=== PATIENT | female | born 1955 | race Caucasian/White ===

== ENCOUNTER → 2022-03-14 | Outpatient (CLI) | payer MEDICARE | END | disposition home or self-care (01) | LOC: PLD 11:55 → LAB SHORT 11:55 | DX: D22.39 Melanocytic nevi of other parts of face (principal); L72.0 Epidermal cyst | CPT/HCPCS: 88305 ==

== ENCOUNTER 2023-10-27 20:36 | Emergency (ER) | payer MEDICARE, BC ==
[~2023-10-27] VITALS: Ht 152.4 cm; Wt 64.0 kg
[2023-10-27 20:40] VITALS: BP 159/56
[2023-10-27] MEDS ORDERED: Ketorolac Tromethamine 30mg Vial IM ONE (22:00)
[2023-10-27] MEDS ORDERED: Cyclobenzaprine HCl 10 MG Tab PO ONE (22:00)
[2023-10-27] MEDS ORDERED: Cyclobenzaprine5 MG PO (22:02)
[2023-10-29] MEDS ORDERED: AZIT250 PO (08:13)
== END 2023-10-27 22:19 | disposition home or self-care (01) ==
LOC: ER 20:36
DX: M43.6 Torticollis (principal); Z88.2 Allergy status to sulfonamides; Z88.5 Allergy status to narcotic agent
CPT/HCPCS: 96372; 99282-25; A9270; J1885

== ENCOUNTER 2023-11-30 00:07 | Day surgery (SDC) | payer MEDICARE, BC ==
[~2023-11-30 00:07] MED LIST: AZIT250 PO; Cyclobenzaprine5 MG PO
[2023-11-30] MEDS ORDERED: Abatacept/Maltose 750 MG in NS 100 ML IV SCH (06:00)
[2023-11-30 15:47] VITALS: BP 148/66
[2023-11-30] MEDS ORDERED: ABAT250V IV (18:03)
[2023-11-30 18:07] LABS: BASOPHILS ABSOLUTE AUTO 0.03 K/mm3 (0.00-0.23); BASOPHILS PERCENT AUTO 0 % (0-2); EOSINOPHILS ABSOLUTE AUTO 0.41 K/mm3 (0.00-0.68); EOSINOPHILS PERCENT AUTO 5 % (0-6); Hematocrit 32.2 % (33.0-51.0); Hemoglobin 10.1 g/dL (11.5-16.0); IMMATURE GRAN ABSOLUTE AUTO 0.03 K/mm3 (0.00-0.10); IMMATURE GRAN PERCENT AUTO 0 % (0-1); LYMPHOCYTES ABSOLUTE AUTO 1.96 K/mm3 (0.84-5.20); LYMPHOCYTES PERCENT AUTO 21 % (21-46); MONOCYTES ABSOLUTE AUTO 0.53 K/mm3 (0.16-1.47); MONOCYTES PERCENT AUTO 6 % (4-13); Mean Corpuscular HGB 23.9 pg (26.0-34.0); Mean Corpuscular HGB Conc 31.4 g/dL (31.5-36.5); Mean Corpuscular Volume 76 fL (80-100); Mean Platelet Volume 9.2 fL (9.1-12.4); NEUTROPHILS ABSOLUTE AUTO 6.22 K/mm3 (1.96-9.15); NEUTROPHILS PERCENT AUTO 68 % (41-73); Platelet Count 435 K/mm3 (150-400); RDW Coefficient Variation 15.1 % (11.7-14.2); RDW Standard Deviation 41.6 fL (35.1-46.3); Red Blood Cell Count 4.22 M/mm3 (3.80-5.20); White Blood Cell Count 9.18 K/mm3 (4.00-11.30)
[2023-11-30 18:32] LABS: C-REACTIVE PROTEIN, EXT RANGE 1.04 mg/dL (0.000-0.300)
[2023-11-30 18:35] LABS: Albumin, Blood 3.1 g/dL (3.4-5.0); Albumin/Globulin Ratio 0.8 (0.8-1.8); Bilirubin, Total 0.4 mg/dL (0.1-1.0); Bun/Creatinine Ratio 27.7 (12.0-20.0); Calcium, Blood 9.4 mg/dL (8.5-10.1); Creatinine, Blood 0.9 mg/dL (0.40-1.00); Potassium, Blood 4.3 mmol/L (3.5-5.5); Total Protein, Blood 7.1 g/dL (6.4-8.2)
== END 2023-11-30 16:58 | disposition home or self-care (01) ==
LOC: ATC 00:07
PROVIDERS: Internal Medicine Rheumatology
DX: M05.79 Rheumatoid arthritis with rheumatoid factor of multiple sites without organ or systems involvement (principal); I10 Essential (primary) hypertension; E11.9 Type 2 diabetes mellitus without complications; Z79.899 Other long term (current) drug therapy; Z88.5 Allergy status to narcotic agent; Z88.2 Allergy status to sulfonamides
CPT/HCPCS: 80053; 85025; 86140; 96365; J0129-JA

== ENCOUNTER 2023-12-14 03:28 | Day surgery (SDC) | payer MEDICARE, BC ==
[~2023-12-14 03:28] MED LIST changes: +ABAT250V IV
[2023-12-14] MEDS ORDERED: Abatacept/Maltose 750 MG in NS 100 ML IV SCH (06:00)
[2023-12-14 14:06] VITALS: BP 135/61
== END 2023-12-14 15:15 | disposition home or self-care (01) ==
LOC: ATC 03:28
DX: M05.79 Rheumatoid arthritis with rheumatoid factor of multiple sites without organ or systems involvement (principal); I10 Essential (primary) hypertension; E11.9 Type 2 diabetes mellitus without complications; M17.0 Bilateral primary osteoarthritis of knee; K75.81 Nonalcoholic steatohepatitis (NASH); Z88.5 Allergy status to narcotic agent
CPT/HCPCS: 96365; J0129-JA

== ENCOUNTER 2023-12-28 00:21 | Day surgery (SDC) | payer MEDICARE, BC ==
[2023-12-28] MEDS ORDERED: Abatacept/Maltose 750 MG in NS 100 ML IV SCH (01:00)
[2023-12-28 14:58] VITALS: BP 144/60
[2023-12-28] MEDS ORDERED: ATOR40TA PO (15:00)
[2023-12-28] MEDS ORDERED: GLIP10 PO (15:01)
[2023-12-28] MEDS ORDERED: METHI10 PO (15:01)
[2023-12-28] MEDS ORDERED: AMLO10 PO (15:01)
[2023-12-28] MEDS ORDERED: PIOG15 PO (15:02)
[2023-12-28] MEDS ORDERED: METF500 PO (15:02)
[2023-12-28] MEDS ORDERED: LOSA50 PO (15:02)
[2023-12-28] MEDS ORDERED: METO25ER PO (15:03)
== END 2023-12-28 16:17 | disposition home or self-care (01) ==
LOC: ATC 00:21
DX: M05.79 Rheumatoid arthritis with rheumatoid factor of multiple sites without organ or systems involvement (principal); E11.9 Type 2 diabetes mellitus without complications; I10 Essential (primary) hypertension; Z88.5 Allergy status to narcotic agent; Z88.2 Allergy status to sulfonamides
CPT/HCPCS: 96365; J0129-JA

== ENCOUNTER 2024-01-25 06:12 | Day surgery (SDC) | payer MEDICARE, BC ==
[~2024-01-25 06:12] MED LIST changes: +AMLO10 PO; +ATOR40TA PO; +Abatacept/Maltose 750 MG in NS 100 ML IV SCH; +GLIP10 PO; +LOSA50 PO; +METF500 PO; +METHI10 PO; +METO25ER PO; +PIOG15 PO
[2024-01-25 09:56] VITALS: BP 139/65
== END 2024-01-25 11:15 | disposition home or self-care (01) ==
LOC: ATC 06:12
DX: M05.79 Rheumatoid arthritis with rheumatoid factor of multiple sites without organ or systems involvement (principal); E11.9 Type 2 diabetes mellitus without complications; I10 Essential (primary) hypertension; Z88.5 Allergy status to narcotic agent; Z88.2 Allergy status to sulfonamides
CPT/HCPCS: 96365; J0129-JA

== ENCOUNTER 2024-02-22 03:23 | Day surgery (SDC) | payer MEDICARE, BC ==
[~2024-02-22 03:23] MED LIST changes: -Abatacept/Maltose 750 MG in NS 100 ML IV SCH
[2024-02-22] MEDS ORDERED: ABATACEPT IV SCH (06:00)
[2024-02-22] MEDS ORDERED: NS IV SCH (06:00)
[2024-02-22] MEDS ORDERED: MALTOSE IV SCH (06:00)
[2024-02-22 09:54] VITALS: BP 132/60
[2024-02-22 10:01] LABS: BASOPHILS ABSOLUTE AUTO 0.04 K/mm3 (0.00-0.23); BASOPHILS PERCENT AUTO 1 % (0-2); EOSINOPHILS ABSOLUTE AUTO 0.36 K/mm3 (0.00-0.68); EOSINOPHILS PERCENT AUTO 5 % (0-6); Hematocrit 40.1 % (33.0-51.0); IMMATURE GRAN ABSOLUTE AUTO 0.01 K/mm3 (0.00-0.10); IMMATURE GRAN PERCENT AUTO 0 % (0-1); LYMPHOCYTES ABSOLUTE AUTO 1.88 K/mm3 (0.84-5.20); LYMPHOCYTES PERCENT AUTO 27 % (21-46); MONOCYTES ABSOLUTE AUTO 0.48 K/mm3 (0.16-1.47); MONOCYTES PERCENT AUTO 7 % (4-13); Mean Corpuscular HGB 27.3 pg (26.0-34.0); Mean Corpuscular HGB Conc 32.4 g/dL (31.5-36.5); Mean Corpuscular Volume 84 fL (80-100); Mean Platelet Volume 9.5 fL (9.1-12.4); NEUTROPHILS ABSOLUTE AUTO 4.31 K/mm3 (1.96-9.15); NEUTROPHILS PERCENT AUTO 61 % (41-73); Platelet Count 271 K/mm3 (150-400); RDW Coefficient Variation 17.5 % (11.7-14.2); RDW Standard Deviation 54.4 fL (35.1-46.3); Red Blood Cell Count 4.76 M/mm3 (3.80-5.20); White Blood Cell Count 7.08 K/mm3 (4.00-11.30)
[2024-02-22 10:23] LABS: C-REACTIVE PROTEIN, EXT RANGE <0.290 mg/dL (0.000-0.300)
[2024-02-22 10:24] LABS: Alanine Aminotransfer (ALT/SGP 23 U/L (12-78); Albumin, Blood 3.8 g/dL (3.4-5.0); Albumin/Globulin Ratio 1.2 (0.8-1.8); Alk Phos 115 U/L (50-136); Anion Gap 8 mmol/L (3-11); Aspartate Aminotrans (AST/SGOT 18 U/L (12-37); Bilirubin, Total 0.5 mg/dL (0.1-1.0); Blood Urea Nitrogen 22 mg/dL (8-24); Bun/Creatinine Ratio 31.7 (12.0-20.0); CO2, Blood 26 mmol/L (21-32); Calcium, Blood 8.9 mg/dL (8.5-10.1); Chloride, Blood 111 mmol/L (98-108); Creatinine, Blood 0.69 mg/dL (0.40-1.00); Globulin, Blood 3.2 g/dL (2.2-4.0); Glomerular Filtration Rate 95 (60-); Glucose, Blood 68 mg/dL (70-99); Potassium, Blood 3.9 mmol/L (3.5-5.5); Sodium, Blood 141 mmol/L (136-145)
== END 2024-02-22 11:06 | disposition home or self-care (01) ==
LOC: ATC 03:23
PROVIDERS: Internal Medicine Rheumatology
DX: M05.79 Rheumatoid arthritis with rheumatoid factor of multiple sites without organ or systems involvement (principal); I10 Essential (primary) hypertension; E11.9 Type 2 diabetes mellitus without complications; Z88.5 Allergy status to narcotic agent; Z88.2 Allergy status to sulfonamides
CPT/HCPCS: 80053; 85025; 86140; 96365; J0129-JA

== ENCOUNTER → 2024-03-17 | Outpatient (CLI) | payer MEDICARE, BC ==
[2024-03-17 13:47] LABS: Microalb/Creat Ratio UR, Rand 20.05 mg/g (0.000-30.000); Microalbumin, Random Urine 80.2 mg/L (0.000-20.000)
== END ==
LOC: LAB 11:27 → LAB SHORT 11:27
PROVIDERS: Physician Assistant
DX: E11.21 Type 2 diabetes mellitus with diabetic nephropathy (principal); E11.59 Type 2 diabetes mellitus with other circulatory complications; E11.69 Type 2 diabetes mellitus with other specified complication
CPT/HCPCS: 82043; 82570

== ENCOUNTER 2024-04-18 04:41 | Day surgery (SDC) | payer MEDICARE, BC ==
[2024-04-18] MEDS ORDERED: Abatacept/Maltose 750 MG in NS 100 ML IV SCH (06:00)
[2024-04-18 09:45] VITALS: BP 119/53
[2024-04-18 11:09] LABS: BASOPHILS ABSOLUTE AUTO 0.05 K/mm3 (0.00-0.23); BASOPHILS PERCENT AUTO 1 % (0-2); EOSINOPHILS ABSOLUTE AUTO 0.66 K/mm3 (0.00-0.68); EOSINOPHILS PERCENT AUTO 10 % (0-6); Hematocrit 36.6 % (33.0-51.0); Hemoglobin 12.2 g/dL (11.5-16.0); IMMATURE GRAN ABSOLUTE AUTO 0.02 K/mm3 (0.00-0.10); IMMATURE GRAN PERCENT AUTO 0 % (0-1); LYMPHOCYTES ABSOLUTE AUTO 1.84 K/mm3 (0.84-5.20); LYMPHOCYTES PERCENT AUTO 27 % (21-46); MONOCYTES ABSOLUTE AUTO 0.54 K/mm3 (0.16-1.47); MONOCYTES PERCENT AUTO 8 % (4-13); Mean Corpuscular HGB 28.4 pg (26.0-34.0); Mean Corpuscular HGB Conc 33.3 g/dL (31.5-36.5); Mean Corpuscular Volume 85 fL (80-100); NEUTROPHILS ABSOLUTE AUTO 3.68 K/mm3 (1.96-9.15); NEUTROPHILS PERCENT AUTO 54 % (41-73); Platelet Count 239 K/mm3 (150-400); RDW Coefficient Variation 13.7 % (11.7-14.2); RDW Standard Deviation 42.6 fL (35.1-46.3); Red Blood Cell Count 4.29 M/mm3 (3.80-5.20); White Blood Cell Count 6.79 K/mm3 (4.00-11.30)
[2024-04-22 09:31] LABS: C-REACTIVE PROTEIN, EXT RANGE <0.290 mg/dL (0.000-0.300)
[2024-04-22 09:33] LABS: Alanine Aminotransfer (ALT/SGP 16 U/L (12-78); Albumin, Blood 3.3 g/dL (3.4-5.0); Albumin/Globulin Ratio 1.2 (0.8-1.8); Alk Phos 91 U/L (50-136); Anion Gap 12 mmol/L (3-11); Aspartate Aminotrans (AST/SGOT 16 U/L (12-37); Bilirubin, Total 0.4 mg/dL (0.1-1.0); Blood Urea Nitrogen 29 mg/dL (8-24); Bun/Creatinine Ratio 36.8 (12.0-20.0); CO2, Blood 23 mmol/L (21-32); Calcium, Blood 8.7 mg/dL (8.5-10.1); Chloride, Blood 107 mmol/L (98-108); Creatinine, Blood 0.79 mg/dL (0.40-1.00); Globulin, Blood 2.7 g/dL (2.2-4.0); Glomerular Filtration Rate 82 (60-); Glucose, Blood 139 mg/dL (70-99); Potassium, Blood 4.2 mmol/L (3.5-5.5); Sodium, Blood 138 mmol/L (136-145)
== END 2024-04-18 10:45 | disposition home or self-care (01) ==
LOC: ATC 04:41
PROVIDERS: Internal Medicine Rheumatology
DX: M05.79 Rheumatoid arthritis with rheumatoid factor of multiple sites without organ or systems involvement (principal); I10 Essential (primary) hypertension; M17.0 Bilateral primary osteoarthritis of knee; E11.9 Type 2 diabetes mellitus without complications; Z88.2 Allergy status to sulfonamides; Z88.5 Allergy status to narcotic agent; K75.81 Nonalcoholic steatohepatitis (NASH)
CPT/HCPCS: 80053; 85025; 86140; 96365; J0129-JA

== ENCOUNTER 2024-05-16 03:58 | Day surgery (SDC) | payer MEDICARE, BC ==
[2024-05-16] MEDS ORDERED: Abatacept/Maltose 750 MG in NS 100 ML IV SCH (06:00)
[2024-05-16 10:01] VITALS: BP 153/76
== END 2024-05-16 11:10 | disposition home or self-care (01) ==
LOC: ATC 03:58
DX: M05.79 Rheumatoid arthritis with rheumatoid factor of multiple sites without organ or systems involvement (principal); Z88.5 Allergy status to narcotic agent; Z88.2 Allergy status to sulfonamides
CPT/HCPCS: 96365; J0129-JA

== ENCOUNTER 2024-06-13 02:37 | Day surgery (SDC) | payer MEDICARE, BC ==
[2024-06-13] MEDS ORDERED: Abatacept/Maltose 750 MG in NS 100 ML IV SCH (06:00)
[2024-06-13 10:15] VITALS: BP 151/80
== END 2024-06-13 11:23 | disposition home or self-care (01) ==
LOC: ATC 02:37
DX: M05.79 Rheumatoid arthritis with rheumatoid factor of multiple sites without organ or systems involvement (principal); E11.9 Type 2 diabetes mellitus without complications; Z79.899 Other long term (current) drug therapy; Z88.5 Allergy status to narcotic agent; Z88.2 Allergy status to sulfonamides
CPT/HCPCS: 96365; J0129-JA

== ENCOUNTER 2024-07-11 01:08 | Day surgery (SDC) | payer MEDICARE, BC ==
[2024-07-11] MEDS ORDERED: Abatacept/Maltose 750 MG in NS 100 ML IV SCH (06:00)
[2024-07-11 09:51] VITALS: BP 145/65
[2024-07-11 10:53] LABS: BASOPHILS ABSOLUTE AUTO 0.04 K/mm3 (0.00-0.23); BASOPHILS PERCENT AUTO 1 % (0-2); EOSINOPHILS ABSOLUTE AUTO 0.46 K/mm3 (0.00-0.68); EOSINOPHILS PERCENT AUTO 7 % (0-6); Hematocrit 40.9 % (33.0-51.0); Hemoglobin 13.2 g/dL (11.5-16.0); IMMATURE GRAN ABSOLUTE AUTO 0.02 K/mm3 (0.00-0.10); IMMATURE GRAN PERCENT AUTO 0 % (0-1); LYMPHOCYTES ABSOLUTE AUTO 1.98 K/mm3 (0.84-5.20); LYMPHOCYTES PERCENT AUTO 28 % (21-46); MONOCYTES PERCENT AUTO 9 % (4-13); Mean Corpuscular HGB 27.8 pg (26.0-34.0); Mean Corpuscular HGB Conc 32.3 g/dL (31.5-36.5); Mean Corpuscular Volume 86 fL (80-100); NEUTROPHILS ABSOLUTE AUTO 3.98 K/mm3 (1.96-9.15); NEUTROPHILS PERCENT AUTO 56 % (41-73); Platelet Count 240 K/mm3 (150-400); RDW Coefficient Variation 13.6 % (11.7-14.2); RDW Standard Deviation 42.7 fL (35.1-46.3); Red Blood Cell Count 4.74 M/mm3 (3.80-5.20); White Blood Cell Count 7.08 K/mm3 (4.00-11.30)
[2024-07-11 12:51] LABS: Alanine Aminotransfer (ALT/SGP 25 U/L (12-78); Albumin, Blood 3.9 g/dL (3.4-5.0); Albumin/Globulin Ratio 1.3 (0.8-1.8); Alk Phos 94 U/L (50-136); Anion Gap 8 mmol/L (3-11); Aspartate Aminotrans (AST/SGOT 19 U/L (12-37); Bilirubin, Total 0.6 mg/dL (0.1-1.0); Blood Urea Nitrogen 25 mg/dL (8-24); Bun/Creatinine Ratio 31.6 (12.0-20.0); C-REACTIVE PROTEIN, EXT RANGE <0.290 mg/dL (0.000-0.300); CO2, Blood 29 mmol/L (21-32); Calcium, Blood 9.6 mg/dL (8.5-10.1); Chloride, Blood 102 mmol/L (98-108); Creatinine, Blood 0.79 mg/dL (0.40-1.00); Globulin, Blood 2.9 g/dL (2.2-4.0); Glomerular Filtration Rate 82 (60-); Glucose, Blood 139 mg/dL (70-99); Sodium, Blood 135 mmol/L (136-145); Total Protein, Blood 6.8 g/dL (6.4-8.2)
== END 2024-07-11 11:22 | disposition home or self-care (01) ==
LOC: ATC 01:08
PROVIDERS: Internal Medicine Rheumatology
DX: M05.79 Rheumatoid arthritis with rheumatoid factor of multiple sites without organ or systems involvement (principal)
CPT/HCPCS: 80053; 85025; 86140; 96365; J0129-JA

== ENCOUNTER 2024-08-11 05:15 | Day surgery (SDC) | payer MEDICARE, BC ==
[2024-08-11] MEDS ORDERED: Abatacept/Maltose 750 MG in NS 100 ML IV SCH (06:00)
[2024-08-11 09:42] VITALS: BP 138/67
== END 2024-08-11 11:00 | disposition home or self-care (01) ==
LOC: ATC 05:15
DX: M05.79 Rheumatoid arthritis with rheumatoid factor of multiple sites without organ or systems involvement (principal); I10 Essential (primary) hypertension; E11.9 Type 2 diabetes mellitus without complications
CPT/HCPCS: 96365; J0129-JA

== ENCOUNTER 2024-09-08 00:30 | Day surgery (SDC) | payer MEDICARE, BC ==
[2024-09-08 09:34] VITALS: BP 158/84
[2024-09-08] MEDS ORDERED: Abatacept/Maltose 750 MG in NS 100 ML IV SCH (09:45)
== END 2024-09-08 11:07 | disposition home or self-care (01) ==
LOC: ATC 00:30
DX: M05.79 Rheumatoid arthritis with rheumatoid factor of multiple sites without organ or systems involvement (principal); M47.819 Spondylosis without myelopathy or radiculopathy, site unspecified; M17.11 Unilateral primary osteoarthritis, right knee; Z79.84 Long term (current) use of oral hypoglycemic drugs; Z79.899 Other long term (current) drug therapy; Z96.652 Presence of left artificial knee joint
CPT/HCPCS: 96365; J0129-JA

== ENCOUNTER 2024-10-09 00:44 | Day surgery (SDC) | payer MEDICARE, BC ==
[2024-10-09] MEDS ORDERED: Abatacept/Maltose 750 MG in NS 100 ML IV SCH (06:00)
[2024-10-09 09:40] VITALS: BP 155/67
== END 2024-10-09 10:48 | disposition home or self-care (01) ==
LOC: ATC 00:44
DX: M05.79 Rheumatoid arthritis with rheumatoid factor of multiple sites without organ or systems involvement (principal); M47.819 Spondylosis without myelopathy or radiculopathy, site unspecified; G89.29 Other chronic pain; M54.9 Dorsalgia, unspecified; K75.81 Nonalcoholic steatohepatitis (NASH); I10 Essential (primary) hypertension; E11.9 Type 2 diabetes mellitus without complications; Z79.84 Long term (current) use of oral hypoglycemic drugs; Z79.899 Other long term (current) drug therapy; Z96.652 Presence of left artificial knee joint
CPT/HCPCS: 96365; J0129-JA

== ENCOUNTER 2024-11-06 00:41 | Day surgery (SDC) | payer MEDICARE, BC ==
[2024-11-06] MEDS ORDERED: Abatacept/Maltose 750 MG in NS 100 ML IV SCH (06:00)
[2024-11-06 09:38] VITALS: BP 127/67
[2024-11-06 10:11] LABS: BASOPHILS ABSOLUTE AUTO 0.05 K/mm3 (0.00-0.23); BASOPHILS PERCENT AUTO 1 % (0-2); EOSINOPHILS ABSOLUTE AUTO 0.90 K/mm3 (0.00-0.68); EOSINOPHILS PERCENT AUTO 11 % (0-6); Hematocrit 39.8 % (33.0-51.0); Hemoglobin 13.3 g/dL (11.5-16.0); IMMATURE GRAN ABSOLUTE AUTO 0.01 K/mm3 (0.00-0.10); IMMATURE GRAN PERCENT AUTO 0 % (0-1); LYMPHOCYTES ABSOLUTE AUTO 1.86 K/mm3 (0.84-5.20); LYMPHOCYTES PERCENT AUTO 23 % (21-46); MONOCYTES ABSOLUTE AUTO 0.57 K/mm3 (0.16-1.47); MONOCYTES PERCENT AUTO 7 % (4-13); Mean Corpuscular HGB Conc 33.4 g/dL (31.5-36.5); Mean Corpuscular Volume 86 fL (80-100); NEUTROPHILS ABSOLUTE AUTO 4.60 K/mm3 (1.96-9.15); NEUTROPHILS PERCENT AUTO 58 % (41-73); NRBC ABSOLUTE 0.00 K/mm3 (0.00-0.02); NRBC Auto 0.0 /100 WBC (0.0-0.2); Platelet Count 218 K/mm3 (150-400); RDW Coefficient Variation 12.9 % (11.7-14.2); RDW Standard Deviation 40.3 fL (35.1-46.3)
--- NOTE | 2024-11-06 10:26 | NUR ---
PT VOICES CONCERN TODAY THAT SHE IS SCHEDULED FOR TWO [employer]ENCIA INFUSIONS IN NOVEMBER. ONCE TODAY ON 11/06 AND THE NEXT IS SCHEDULED FOR 4 WEEKS FROM TODAY ON 12/04. SHE IS CONCERNED INSURANCE WOULDN'T COVER BOTH. SPOKE WITH LYNDA WHO HANDLES INSURANCE AND AUTHORIZATIONS FOR OUR DEPT AND SHE STATED THAT LONG SHE WAS FOLLOWING HER ORDER THAT STATES ORENCIA EVERY 4 WEEKS, SHE WILL BE APPROVED AND THERE WILL BE NO ISSUE. PT INFORMED OF WHAT LYNDA SAID AND IS PLANNING TO KEEP HER 12/04/24 APPT.
--- NOTE | 2024-11-06 10:47 | NUR ---
LABS FAXED TO DR GARCIA
== END 2024-11-06 10:37 | disposition home or self-care (01) ==
LOC: ATC 00:41
PROVIDERS: Internal Medicine Rheumatology
DX: M05.79 Rheumatoid arthritis with rheumatoid factor of multiple sites without organ or systems involvement (principal); Z79.899 Other long term (current) drug therapy; E05.00 Thyrotoxicosis with diffuse goiter without thyrotoxic crisis or storm; E11.65 Type 2 diabetes mellitus with hyperglycemia
CPT/HCPCS: 36415; 80053; 83036; 84439; 84443; 84481; 85025; 86140; 96365; J0129-JA

== ENCOUNTER 2024-12-04 02:50 | Day surgery (SDC) | payer MEDICARE, BC ==
[2024-12-04] MEDS ORDERED: Abatacept/Maltose 750 MG in NS 100 ML IV SCH (06:00)
[2024-12-04 09:53] VITALS: BP 150/96
[2024-12-04 10:08] LABS: BASOPHILS ABSOLUTE AUTO 0.04 K/mm3 (0.00-0.23); BASOPHILS PERCENT AUTO 1 % (0-2); EOSINOPHILS ABSOLUTE AUTO 0.77 K/mm3 (0.00-0.68); EOSINOPHILS PERCENT AUTO 9 % (0-6); Hematocrit 42.2 % (33.0-51.0); Hemoglobin 13.8 g/dL (11.5-16.0); IMMATURE GRAN ABSOLUTE AUTO 0.00 K/mm3 (0.00-0.10); IMMATURE GRAN PERCENT AUTO 0 % (0-1); LYMPHOCYTES ABSOLUTE AUTO 1.86 K/mm3 (0.84-5.20); LYMPHOCYTES PERCENT AUTO 21 % (21-46); MONOCYTES ABSOLUTE AUTO 0.64 K/mm3 (0.16-1.47); MONOCYTES PERCENT AUTO 7 % (4-13); Mean Corpuscular HGB Conc 32.7 g/dL (31.5-36.5); Mean Corpuscular Volume 86 fL (80-100); NEUTROPHILS ABSOLUTE AUTO 5.55 K/mm3 (1.96-9.15); NEUTROPHILS PERCENT AUTO 63 % (41-73); NRBC ABSOLUTE 0.00 K/mm3 (0.00-0.02); NRBC Auto 0.0 /100 WBC (0.0-0.2); Platelet Count 255 K/mm3 (150-400); RDW Coefficient Variation 13.1 % (11.7-14.2); RDW Standard Deviation 40.3 fL (35.1-46.3)
[2024-12-04 10:25] LABS: C-REACTIVE PROTEIN, EXT RANGE <0.290 mg/dL (0.000-0.300)
[2024-12-04 10:28] LABS: Alanine Aminotransfer (ALT/SGP 25 U/L (12-78); Albumin, Blood 3.9 g/dL (3.4-5.0); Albumin/Globulin Ratio 1.2 (0.8-1.8); Anion Gap 8 mmol/L (3-11); Aspartate Aminotrans (AST/SGOT 13 U/L (12-37); Bilirubin, Total 0.5 mg/dL (0.1-1.0); Blood Urea Nitrogen 32 mg/dL (8-24); CO2, Blood 30 mmol/L (21-32); Calcium, Blood 9.3 mg/dL (8.5-10.1); Chloride, Blood 99 mmol/L (98-108); Creatinine, Blood 0.75 mg/dL (0.40-1.00); Globulin, Blood 3.2 g/dL (2.2-4.0); Glucose, Blood 311 mg/dL (70-99); Potassium, Blood 4.1 mmol/L (3.5-5.5); Sodium, Blood 133 mmol/L (136-145); Total Protein, Blood 7.1 g/dL (6.4-8.2)
== END 2024-12-04 10:51 | disposition home or self-care (01) ==
LOC: ATC 02:50
PROVIDERS: Internal Medicine Rheumatology
DX: M05.79 Rheumatoid arthritis with rheumatoid factor of multiple sites without organ or systems involvement (principal); I10 Essential (primary) hypertension; E11.9 Type 2 diabetes mellitus without complications
CPT/HCPCS: 36591; 80053; 85025; 86140; 96365; 99211; J0129-JA

== ENCOUNTER 2025-01-02 01:16 | Day surgery (SDC) | payer MEDICARE, BC ==
[2025-01-02] MEDS ORDERED: Abatacept/Maltose 750 MG in NS 100 ML IV SCH (06:00)
[2025-01-02 10:28] VITALS: BP 144/68
== END 2025-01-02 12:05 | disposition home or self-care (01) ==
LOC: ATC 01:16
DX: M05.79 Rheumatoid arthritis with rheumatoid factor of multiple sites without organ or systems involvement (principal); I10 Essential (primary) hypertension; E11.9 Type 2 diabetes mellitus without complications
CPT/HCPCS: 96365; J0129-JA

== ENCOUNTER 2025-01-30 02:38 | Day surgery (SDC) | payer MEDICARE, BC ==
[2025-01-30] MEDS ORDERED: Abatacept/Maltose 750 MG in NS 100 ML IV SCH (06:00)
[2025-01-30 09:35] VITALS: BP 136/63
== END 2025-01-30 10:37 | disposition home or self-care (01) ==
LOC: ATC 02:38
DX: M05.79 Rheumatoid arthritis with rheumatoid factor of multiple sites without organ or systems involvement (principal); E11.9 Type 2 diabetes mellitus without complications; I10 Essential (primary) hypertension; M47.819 Spondylosis without myelopathy or radiculopathy, site unspecified
CPT/HCPCS: 96365; 96413; J0129-JA